=== PATIENT | male | born 1945 | race Caucasian/White ===

== ENCOUNTER 2022-06-27 10:35 | Day surgery (SDC) | payer OTHER ==
[2022-06-27 09:31] VITALS: BMI 24.7
[2022-06-27] MEDS ORDERED: LACTATED RINGERS 1,000 ML IV ONE (11:18)
[2022-06-27 11:39] VITALS: RESP 16; TEMP 97.3
[2022-06-27] MEDS ORDERED: PROPOFOL 10 MG/ML 20 ML VIAL IV ONE (11:46)
--- NOTE | 2022-06-27 12:17 | P.PCN ---
Date of Procedure: 06/27/22 Procedure(s) Performed: BRIEF HISTORY: Patient is a 76-year-old pleasant male scheduled for an elective colonoscopy as a part of evaluation of intermittent lower abdominal pain and chronic diarrhea for the last 1 year duration. PROCEDURE PERFORMED: Colonoscopy with biopsy/snare polypectomy. PREOPERATIVE DIAGNOSIS: Lower abdominal pain and chronic diarrhea of 1 year duration. IV sedation per Anesthesia. PROCEDURE: After informed consent was obtained, the patient, was brought into the endoscopy unit. IV sedation was administered by Anesthesia under continuous monitoring. Digital rectal examination was normal. Initially the Olympus CF-160 flexible video colonoscope was then inserted in the rectum, gradually advanced into the cecum without any difficulty. Careful examination was performed as the scope was gradually being withdrawn. Ileocecal valve and the appendiceal orifice were visualized and appeared normal. Prep was poor in some areas of the colon. Mucosa of the cecum, appeared normal. The ascending colon there was a 1 cm ascending of polyps but by snare polypectomy. The transverse colon there was a 3 cm broad-based polyp removed by snare polypectomy and complete polypectomy was accomplished. Rest of the ascending colon, transverse colon, descending colon, sigmoid colon, appeared normal. In the proximal rectum there was an circumferential ulcerated mass extending from 10-60 cm from the anal verge and multiple biopsies were done from this area. Retroflexion was performed in the rectum and no lesions were seen. The patient tolerated the procedure well. IMPRESSION: 1. Circumferential ulcerated proximal rectal mass extending from 10-60 cm from the anal verge status post multiple biopsies 2, 1 cm and 2 cm ascending colon polyp status post polypectomy 3. 3 cm broad-based transverse colon polyp status post piecemeal snare polypectomy and complete polypectomy accomplished RECOMMENDATIONS: Findings of this examination were discussed with the patient as well as his family. He was advised to follow with the biopsy results. He'll be seen in office in one week..
[2022-06-27] MEDS ORDERED: LACTATED RINGERS 1,000 ML IV SCH (12:19)
[2022-06-27] MEDS ORDERED: LIDOCAINE 1% (10MG/ML) FOR IV START INTRADERMA PRN (12:19)
[2022-06-27 12:37] VITALS: BP 113/71; PULSE 71
== END 2022-06-27 13:06 | disposition home or self-care (01) ==
LOC: ORWHC2ENDO 10:35
PROVIDERS: ATTEND Internal Medicine Gastroenterology
DX: D12.2 Benign neoplasm of ascending colon (principal); D12.3 Benign neoplasm of transverse colon; K63.89 Other specified diseases of intestine
CPT/HCPCS: 45380; 45385; J2704; 88305

== ENCOUNTER → 2022-08-01 | Outpatient (CLI) | payer OTHER ==
--- NOTE | 2022-08-03 15:16 | MR ---
EXAMINATION TYPE: MR Rectal wo con DATE OF EXAM: 08/01/2022 1:45 PM CLINICAL INDICATION:Male, 77 years old with history of C20 RECTAL CANCER; COMPARISON/CORRELATION: None TECHNIQUE: Multiplanar, multisequence imaging was performed on a 3T MR scanner with optimized small f ield of view imaging of the rectum. Orthogonal high resolution T2 weighted imaging was obtained thro ugh the rectal mass with additional sequences including T1 weighted images and diffusion weighted barbara ging. IV CONTRAST: None. FINDINGS: IMAGE QUALITY: sub adequate PRIMARY TUMOR: MORPHOLOGY, LOCATION, AND CHARACTERISTICS: Distance to anal verge: 11.9 cm Distance to top of anal sphincter complex/anorectal junction: 8.0 cm Relationship to the anterior peritoneal reflection: above Craniocaudal length: 5.8 cm Circumferential location (o'clock position): 11 o'clock to 7 o'clock Morphology: Semi-Annular Mucinous: No MRI Rectal Cancer T Category: There is some motion artifact limiting evaluation there is felt to be 8 mm of invasion posteriorly. T3c (tumor penetrates >5-15 mm beyond muscularis propria). FOR LOW RECTAL TUMORS - Invasion of anal sphincter complex Absent EXTRAMURAL VENOUS INVASION (EMVI): No CIRCUMFERENTIAL RESECTION MARGIN (for T3 only) Shortest distance of tumor to MRF (or anticipated CRM): (not applicable if tumor at peritonealized po rtion of the rectum) Is there a separate tumor deposit, lymph node, or EMVI threatening (> 1 mm and < 2 mm) or invading (< 1 mm) the MRF (if yes, note location): LYMPH NODES: Mesorectal/superior rectal lymph nodes and/or tumor deposits: N0 (no visible lymph nodes/deposits *Suspicious morphologic criteria: (1) round shape, (2) irregular borders, (3) heterogenous signal int ensity Superior most suspicious lymph node/deposit is located: None Extramesorectal lymph nodes: any suspicious: No. Locoregional: internal iliac, obturator M1: external iliac, common iliac, inguinal, retroperitoneal OTHER: The prostate gland is enlarged measuring up to 6.7 x 6.3 x 5.3 cm. There is median lobe hypertrophy c hanges. IMPRESSION: Stage: T3 c (note that there peristalsis which limits evaluation) CRM: (not applicable if tumor at peritonealized portion of the rectum Sphincter Involvement: No Suspicious extramesorectal nodes: No
== END | disposition home or self-care (01) ==
LOC: RADMRIMAIN 12:11
PROVIDERS: ATTEND Internal Medicine Hematology & Oncology
DX: C20 Malignant neoplasm of rectum (principal)
CPT/HCPCS: 72195

== ENCOUNTER → 2023-01-12 | Outpatient (CLI) | payer OTHER ==
--- NOTE | 2023-01-16 18:48 | MR ---
EXAMINATION TYPE: MR Rectal wo/w con DATE OF EXAM: 01/12/2023 3:31 PM CLINICAL INDICATION:Male, 77 years old with history of rectal ca; COMPARISON: 08/01/2022 TECHNIQUE: Multiplanar, multisequence imaging was performed on a 3T MR scanner with optimized small f ield of view imaging of the rectum prior to and following the administration of intravenous contrast. Orthogonal high resolution T2 weighted imaging was obtained through the rectal mass with additional sequences including T1 weighted images and diffusion weighted imaging. IV CONTRAST: 8.5Gadavist FINDINGS: TREATED TUMOR/TUMOR BED CHARACTERISTICS: The primary tumor and extramural disease shows decreased tumor size compared to 08/01/2022. Distance of inferior margin of treated tumor/treated area to the anal verge: 10.3 cm Distance of inferior margin of treated tumor/treated area to the anorectal junction: 7.2 cm Relationship to the anterior peritoneal reflection: above Craniocaudal length of the tumor: 5.8 cm Previous craniocaudal length of the tumor: 5.8 cm Maximal width: 0.9 cm Previous width: 1.7 cm yMR-T category: T3c (tumor/fibrosis penetrates>5-15 mm beyond muscularis propria) FUNCTIONAL SEQUENCES DWI - restricted diffusion present in tumor or tumor bed: Yes, series 803 image 96, significantly imp roved from prior imaging 08/01/2022. EXTRAMURAL VENOUS INVASION: None CRM (for T3 only) Shortest distance of tumor to MRF (or anticipated CRM): 16 mm. Is there a separate tumor deposit, lymph node or EMVI threatening ( greater than 1 mm and less than 2 mm) or invading (< 1 mm) the MRF: No LYMPH NODES: Mesorectal/superior rectal lymph nodes and/or tumor deposits: N0 (no visible lymph nodes/deposits or only < 5 mm short axis) Superior most lymph node is located: Extra mesorectal lymph nodes: None OTHER FINDINGS: Trabeculated urinary bladder wall compatible with likely chronic bladder obstruction given enlargement of the prostate gland measuring up to 6.2 cm in transverse dimension. IMPRESSION: Since 08/01/2022, the primary tumor and extramural disease shows: partial response Post treatment category: ymrT T3c, ymrN N0 (no visible lymph nodes/deposits CRM: clear Sphincter involvement: No Suspicious extra mesorectal lymph nodes: No
== END | disposition home or self-care (01) ==
LOC: RADMRIMAIN 13:06
PROVIDERS: ATTEND Radiology Radiation Oncology
DX: C20 Malignant neoplasm of rectum (principal)
CPT/HCPCS: 72197; A9585

== ENCOUNTER → 2023-05-02 | Outpatient (CLI) | payer OTHER ==
[2023-05-02 08:04] LABS: ALT 15 U/L (4-49); AST 19 U/L (17-59); African American GFR (CKD) >90 (>60 ml/min/1.73 sqM); Albumin 3.8 g/dL (3.5-5.0); Albumin/Globulin Ratio 1.3; Alkaline Phosphatase 74 U/L (38-126); Anion Gap 6 mmol/L; Blood Urea Nitrogen 17 mg/dL (9-20); Calcium 10.5 mg/dL (8.4-10.2); Carbon Dioxide 27 mmol/L (22-30); Chloride 105 mmol/L (98-107); Globulin 2.9 g/dL; Glucose 100 mg/dL (74-99); Non-African American GFR(CKD) 89 (>60 ml/min/1.73 sqM); Potassium 4.8 mmol/L (3.5-5.1); Sodium 138 mmol/L (137-145); Total Bilirubin 0.6 mg/dL (0.2-1.3); Total Protein 6.7 g/dL (6.3-8.2)
[2023-05-02 08:10] LABS: NT-Pro-B-Type Natriuretic Pept 412 pg/mL
[2023-05-02 10:57] LABS: HCT 46.2 % (39.6-50.0); HGB 14.9 d/dL (13.0-17.0); MCHC 32.3 d/dL (32.0-37.0); Mean Platelet Volume 11.9 FL (9.5-12.2); NRBC Per 100 WBC 0 X 10*3/uL (0.00-0.01); Platelet Count 183 X 10*3/uL (140-440); RBC 4.97 X 10*6/uL (4.40-5.60); WBC 5.89 X 10*3/uL (4.50-10.00)
[2023-05-02 11:36] LABS: BUN/Creat Ratio 19.88 Ratio (12.00-20.00); Chol/HDL Ratio 3.83 Ratio; LDL Cholesterol,Calculated 126.7 mg/dL (0.0-131.0); VLDL Calculation 18.94 mg/dL (5.00-40.00)
== END | disposition home or self-care (01) ==
LOC: LABWHC1 07:05
PROVIDERS: ATTEND Student in an Organized Health Care Education/Training Program
DX: I50.9 Heart failure, unspecified (principal); E11.9 Type 2 diabetes mellitus without complications; E03.9 Hypothyroidism, unspecified; F17.200 Nicotine dependence, unspecified, uncomplicated
CPT/HCPCS: 36415; 80053; 80061; 83036; 83880; 84443; 85027

== ENCOUNTER 2023-05-07 11:18 | Day surgery (SDC) | payer OTHER ==
[~2023-05-07 11:18] MED LIST: ALPRAZolam 0.25 MG TAB PO PRN; ALPRAZolam 0.5 MG TAB PO PRN; ASPIRIN 325 MG TAB PO STA; ATORVASTATIN 80 MG TAB PO STA; HEPARIN SODIUM,PORCINE (1 ML) 2,500 UNIT in SODIUM CHLORIDE 0.9% 250 ML IRRIGATION PRN; HEPARIN SODIUM,PORCINE 10,000 UNIT in SODIUM CHLORIDE 0.9% 1,000 ML IRRIGATION PRN; NITROGLYCERIN SL TABS 0.4 MG TAB SUBLINGUAL PRN
[2023-05-07] MEDS ORDERED: SODIUM CHLORIDE 0.9% 1,000 ML IV ONE (11:47)
[2023-05-07 12:11] LABS: Basophils % (A) 1 %; Eosinophils # (A) 0.1 k/uL (0-0.7); Eosinophils % (A) 2 %; HCT 43.9 % (39.0-53.0); HGB 14.6 gm/dL (13.0-17.5); Lymphocytes # (A) 1.8 k/uL (1.0-4.8); Lymphocytes % (A) 25 %; MCH 30.9 pg (25.0-35.0); MCHC 33.4 g/dL (31.0-37.0); MCV 92.7 fL (80.0-100.0); Mean Platelet Volume 9.6; Monocytes # (A) 0.4 k/uL (0-1.0); Monocytes % (A) 5 %; Neutrophils # (A) 4.8 k/uL (1.3-7.7); Neutrophils % (A) 65 %; Platelet Count 175 k/uL (150-450); RBC 4.73 m/uL (4.30-5.90); RDW 13.6 % (11.5-15.5); WBC 7.4 k/uL (3.8-10.6)
[2023-05-07] MEDS ORDERED: LIDOCAINE 1% INJ 10MG/ML (20 ML MDV) ONE (13:19)
[2023-05-07] MEDS ORDERED: VERAPAMIL 2.5 MG/ML 2 ML AMP ONE (13:19)
[2023-05-07] MEDS ORDERED: HEPARIN SODIUM 1,000 UN/ML (10ML VL) ONE ×2 (13:30→16:13)
[2023-05-07] MEDS ORDERED: fentaNYL (PF) 50 MCG/ML 2 ML AMP ONE ×2 (13:30→16:33)
[2023-05-07] MEDS: MIDAZOLAM 2 MG/2 ML VIAL IVP ONE ×2 (13:41→13:42)
[2023-05-07] MEDS ORDERED: fentaNYL (PF) 50 MCG/1 ML VIAL IVP ONE (13:41)
[2023-05-07] MEDS ORDERED: LIDOCAINE 1% INJ 10MG/ML (5 ML VIAL-PF) SQ ONE (13:42)
[2023-05-07] MEDS ORDERED: VERAPAMIL 2.5 MG/ML 2 ML AMP INTRAARTER ONE (13:44)
[2023-05-07] MEDS ORDERED: HEPARIN SODIUM 1,000 UN/ML (10ML VL) IV ONE (13:48)
[2023-05-07] MEDS ORDERED: IOPAMIDOL-370 100ML BTL INJ ONE ×2 (13:55→17:26)
[2023-05-07] MEDS ORDERED: IV FLUID CONTINUATION 500 ML IV ONE (14:20)
--- NOTE | 2023-05-07 14:49 | P.CARDCATH ---
Date of Procedure: 05/07/23 Description of Procedure: DIAGNOSTIC CORONARY ANGIOGRAPHY and LEFT HEART CATH REPORT PROCEDURES PERFORMED: Left heart catheterization Selective coronary angiography Moderate conscious sedation 28 mins Right radial access INDICATION: Cardiomyopathy and cardiac arrhythmia 77-year-old saw me in clinic for perioperative cardiac risk assessment. He has history of colon cancer getting chemotherapy with capecitabine since June 2022. I performed an echo cardiac gram which showed a EF of 35-40% which is a new finding for this patient. He also had significant monomorphic PVCs. His PVC but most 20%. As a part of his cardiomyopathy workup be performed in outpat ient heart catheterization CONSENT: I have discussed the risks, benefits and alternative therapies for the above-mentioned procedure, sedation/analgesia and necessary blood product administration (if indicated, as they pertain to this patient). The patient has indicated understanding and acceptance of the risks and procedures discussed. Conscious Sedation: Patient's ECG, heart rate, blood pressure, pulse oximetry was monitored throughout the duration of procedure under my direct supervision. [1] mg Versed and [50] mg Fentanyl were used for induction of moderate conscious sedation. Total duration of moderate concious sedation 28 minutes. PROCEDURE: After explaining the risks, benefits and alternatives of the above mentioned procedures in detail to the patient, informed consent was obtained. Patient was taken to the catheterization lab, prepped and draped in usual sterile fashion using universal precuations. Barbow and magui test were performed to confirm adequate perfusion to fingers. Ultrasound was used to identify the radial artery. 1% lidocaine was infiltrated over the right radial artery. A 6-Stateless sheath was placed and secured in the right radial artery using modified Seldinger technique. The sheath was flushed and 5 mg verapamil was administered intra-arterially. J tipped wire was advanced under fluoroscopic guidance. Once the wire tip reached aortic root 4500 units of IV heparin was given. Over the wire 5-Stateless tiger catheter was advanced. The wire was removed and the catheter was flushed. The catheter failed to selectively engage the left coronary ostium therefore the catheter was removed over the wire. Over the wire JL4 diagnostic catheter was advanced. Wire was removed, catheter was flushed and manipulated under fluoroscopy to selectively engaged the left coronary ostium. Left coronary angioplasty was performed in different angiographic projections. This catheter was exchanged for a JR4 diagnostic catheter over the wire. The catheter was flushed and manipulated to cross the aortic valve. LV pressures were obtained. Pullback was performed across aortic valve and catheter was manipulated to selectively engage the right coronary ostium under fluoroscopic guidance. Right coronary angiography was performed in different angiographic projections. Catheter was removed over the wire. Radial sheath was flushed. The right radial sheath was removed and a TR band was placed with excellent patent hemostasis was achieved. The patient tolerated the procedure well. Jason jackson was transported back to the post catheterization holding area in stable condition. Angiographic images were reviewed in detail. HEMODYNAMICS: Aortic Pressure: 125/70 mmHg. LV pressure: 128/1 mmHg. LVEDP 5 mmHg. SELECTIVE CORONARY ARTERIOGRAPHY: LEFT MAIN: The left main is a large caliber vessel which trifurcates into the LAD, ramus and circumflex. Left main appears angiographically normal. LEFT ANTERIOR DESCENDING CORONARY ARTERY: LAD is a large caliber vessel which terminates before reaching the apex. It appears angiographically normal. It gives rise to multiple diagonal branches which appears angiographically normal. LEFT CIRCUMFLEX CORONARY ARTERY: It is nondominant vessel. Left circumflex is a moderate caliber vessel. Proximal LCx has 10-20% luminal irregularities. It gives rise to OM1 which has mild tender 20% luminal irregularities. OM 2 and OM 3 are medium size vessels which appears angiographically normal. Distal LCx is 2 mm vessel. Between origin of OM 2 and OM 3 has 95% stenosis. RAMUS INTERMEDIUS: Small-caliber vessel appears angiographically normal. RIGHT CORONARY ARTERY: Dominant vessel. The right coronary artery is a large caliber vessel which gives PDA and PL branch. Proximal-mid RCA has eccentric 70% stenosis. Distal-mid has 80% stenosis. 20-30% ostial PDA disease. PL branch appears angiographic normal. IMPRESSION: 95% distal LCx disease 90% distal-mid RCA disease Normal LVEDP Cardiomyopathy with EF 35-40% 20% PVC burden s/p Chemotherapy for Colon CA. Used Capecetabine for chemotherapy, unsure, await Hem-onc clinic notes. PLAN: PCI for RCA and LCx /u within 1 week in clinic. Performing Physician Prudencio Jacobs MD
[2023-05-07] MEDS: fentaNYL (PF) 50 MCG/ML 2 ML AMP IVP ONE ×2 (16:52→16:57)
[2023-05-07] MEDS ORDERED: MIDAZOLAM 2 MG/2 ML VIAL IVP ONE (16:52)
[2023-05-07] MEDS: HEPARIN SODIUM 1,000 UN/ML (10ML VL) IVP ONE ×2 (16:56→17:30)
[2023-05-07] MEDS ORDERED: CLOPIDOGREL 75 MG TAB ONE (17:01)
[2023-05-07] MEDS ORDERED: CLOPIDOGREL 75 MG TAB PO ONE (17:06)
[2023-05-07] MEDS ORDERED: VERAPAMIL SYRINGE (5 MG/10 ML) INTRAARTER ONE (17:26)
[2023-05-07] MEDS ORDERED: MAG HYDROX/AL HYDROX/SIMETH 30 ML CUP PO PRN (17:33)
[2023-05-07] MEDS ORDERED: NITROGLYCERIN SL TABS 0.4 MG TAB SUBLINGUAL PRN (17:33)
[2023-05-07] MEDS ORDERED: ZOLPIDEM 5 MG TAB PO PRN (17:33)
[2023-05-07] MEDS ORDERED: ATROPINE SULFATE 0.1 MG/ML 10ML SYRINGE IV PRN (17:33)
[2023-05-07] MEDS ORDERED: RX INFO: IV CONTRAST WAS GIVEN 1 EACH MISC MISCELLANE PRN (17:33)
--- NOTE | 2023-05-07 17:40 | P.PCN ---
Date of Procedure: 05/07/23 Operative Findings: PERCUTANEOUS CORONARY INTERVENTION Performing physician Jerel Mcgrath M.D. Procedure Performed: 1. Successful stenting of the mid RCA using 4.0 x 38 Xience drug-eluting stent with an excellent angiographic results. 2. Adjunctive use of intravascular imaging Indication: Critical mid RCA disease in this 77-year-old gentleman who underwent a heart catheterization by Dr. Jacobs and was found to have critical disease involving the RCA and left circumflex Approach: Right radial artery Complications: None Level of Sedation: Moderate with a sedation length of 33 minutes Procedure Discussion: After obtaining an informed consent the patient was brought to the cardiac cardiac cath lab radiology technologist. The right radial sheath was in place. Anticoagulation was initiated using heparin with continuous ACT monitoring. Subsequently I did engage the RCA using JR4 guiding catheter. I did wire the RCA using a run-through wire. Intravascular ultrasound was performed and showed calcified RCA with a diameter around 4 mm to 4.5 mm. Predilatation was performed using 3.5 mm noncompliant balloon before I deployed a 4.0 x 38 mm stent where the stent was positioned under fluoroscopy guidance and deployed under fluoroscopy guidance. Intra vascular ultrasound was performed again and showed that the proximal portion of the stent was not well expanded. I postdilated using 4.5 mm noncompliant balloon. Final angiogram showed excellent angiographic results and the procedure was completed was no complication Postprocedure Management: 1. Dual antiplatelet therapy using aspirin and Plavix for at least 6 months 2. PCI of the LCx to be performed in the next few weeks
[2023-05-07] MEDS ORDERED: SODIUM CHLORIDE 0.9% 1,000 ML in EMPTY BAG 1 BAG IV SCH (17:45)
[2023-05-07] MEDS: SODIUM CHLORIDE 0.9% 1,000 ML in EMPTY BAG 1 BAG IV SCH ×2 (18:06→18:33)
[2023-05-08] MEDS: SODIUM CHLORIDE 0.9% 1,000 ML in EMPTY BAG 1 BAG IV SCH (06:35)
[2023-05-08 07:28] LABS: African American GFR (CKD) >90 (>60 ml/min/1.73 sqM); Non-African American GFR(CKD) >90 (>60 ml/min/1.73 sqM)
[2023-05-08] MEDS ORDERED: TAMSULOSIN 0.4 MG CAP.ER.24H PO SCH (07:30)
[2023-05-08] MEDS ORDERED: amLODIPine 5 MG TAB PO SCH (07:30)
[2023-05-08 07:45] VITALS: BP 148/54; PULSE 63; RESP 14; TEMP 97.6
[2023-05-08] MEDS ORDERED: ASPIRIN 81 MG PO SCH (09:00)
[2023-05-08] MEDS ORDERED: METOPROLOL SUCCINATE (ER) 50 MG TAB.ER.24H PO SCH (09:00)
[2023-05-08] MEDS ORDERED: DULoxetine HCL 30 MG CAPSULE.DR PO SCH (09:00)
[2023-05-08] MEDS ORDERED: LOSARTAN 25 MG TAB PO SCH (09:00)
[2023-05-08] MEDS ORDERED: CLOPIDOGREL 75 MG TAB PO SCH (09:00)
== END 2023-05-08 10:20 | disposition home or self-care (01) ==
LOC: CATHCVL 11:18 → 6NMEDSUR 17:48 → CATHCVL 05-08 10:20
PROVIDERS: ATTEND Student in an Organized Health Care Education/Training Program
DX: I25.10 Atherosclerotic heart disease of native coronary artery without angina pectoris (principal); I42.0 Dilated cardiomyopathy; I11.0 Hypertensive heart disease with heart failure; I50.9 Heart failure, unspecified; I45.10 Unspecified right bundle-branch block; I49.3 Ventricular premature depolarization; F17.210 Nicotine dependence, cigarettes, uncomplicated; Z85.038 Personal history of other malignant neoplasm of large intestine; Z79.899 Other long term (current) drug therapy
CPT/HCPCS: 92978; 93458; 76937; 82565; 85025; C9600; C1887 ×2; C1769 ×3; C1894; C1753; C1874; C1725 ×2; J2250; J2001; J3010 ×2; J1644; Q9967

== ENCOUNTER 2023-06-05 08:08 | Day surgery (SDC) | payer OTHER ==
[2023-05-31 11:31] VITALS: BMI 25.4
[~2023-06-05 08:08] MED LIST changes: -ATORVASTATIN 80 MG TAB PO STA; -HEPARIN SODIUM,PORCINE (1 ML) 2,500 UNIT in SODIUM CHLORIDE 0.9% 250 ML IRRIGATION PRN; -HEPARIN SODIUM,PORCINE 10,000 UNIT in SODIUM CHLORIDE 0.9% 1,000 ML IRRIGATION PRN; +SODIUM CHLORIDE 0.9% 1,000 ML in EMPTY BAG 1 BAG IV SCH
[2023-06-05 08:59] LABS: Basophils % (A) 0 %; Eosinophils # (A) 0.2 k/uL (0-0.7); Eosinophils % (A) 2 %; HCT 42.7 % (39.0-53.0); HGB 13.9 gm/dL (13.0-17.5); Lymphocytes # (A) 2.2 k/uL (1.0-4.8); Lymphocytes % (A) 27 %; MCH 30.6 pg (25.0-35.0); MCHC 32.6 g/dL (31.0-37.0); MCV 93.7 fL (80.0-100.0); Mean Platelet Volume 9.9; Monocytes # (A) 0.5 k/uL (0-1.0); Monocytes % (A) 7 %; Neutrophils # (A) 4.9 k/uL (1.3-7.7); Neutrophils % (A) 61 %; Platelet Count 159 k/uL (150-450); RBC 4.56 m/uL (4.30-5.90); RDW 13.7 % (11.5-15.5)
[2023-06-05 09:03] VITALS: RESP 18; TEMP 97.6
[2023-06-05 09:06] LABS: African American GFR (CKD) >90 (>60 ml/min/1.73 sqM); Anion Gap 9 mmol/L; Blood Urea Nitrogen 13 mg/dL (9-20); Calcium 10.1 mg/dL (8.4-10.2); Carbon Dioxide 25 mmol/L (22-30); Chloride 104 mmol/L (98-107); Glucose 96 mg/dL (74-99); Non-African American GFR(CKD) >90 (>60 ml/min/1.73 sqM); Potassium 4.1 mmol/L (3.5-5.1); Sodium 138 mmol/L (137-145)
[2023-06-05] MEDS ORDERED: VERAPAMIL 2.5 MG/ML 2 ML AMP ONE (11:02)
[2023-06-05] MEDS ORDERED: MIDAZOLAM 2 MG/2 ML VIAL IVP ONE (11:10)
[2023-06-05] MEDS ORDERED: LIDOCAINE 1% INJ 10MG/ML (5 ML VIAL-PF) SQ ONE (11:11)
[2023-06-05] MEDS ORDERED: VERAPAMIL SYRINGE (5 MG/10 ML) INTRAARTER ONE (11:12)
[2023-06-05] MEDS ORDERED: HEPARIN SODIUM 1,000 UN/ML (10ML VL) IVP ONE (11:14)
[2023-06-05] MEDS ORDERED: NITROGLYCERIN 1000MCG/10ML SYRINGE INTRACORON ONE (11:24)
[2023-06-05] MEDS ORDERED: ATROPINE SULFATE 0.1 MG/ML 10ML SYRINGE IV PRN (11:32)
[2023-06-05] MEDS ORDERED: RX INFO: IV CONTRAST WAS GIVEN 1 EACH MISC MISCELLANE PRN (11:32)
[2023-06-05] MEDS ORDERED: NITROGLYCERIN SL TABS 0.4 MG TAB SUBLINGUAL PRN (11:32)
[2023-06-05] MEDS ORDERED: MAG HYDROX/AL HYDROX/SIMETH 30 ML CUP PO PRN (11:32)
[2023-06-05] MEDS ORDERED: ZOLPIDEM 5 MG TAB PO PRN (11:32)
[2023-06-05] MEDS ORDERED: CLOPIDOGREL 75 MG TAB ONE (11:34)
[2023-06-05] MEDS ORDERED: CLOPIDOGREL 75 MG TAB PO ONE (11:36)
[2023-06-05] MEDS ORDERED: IOPAMIDOL-370 100ML BTL INJ ONE (11:36)
--- NOTE | 2023-06-05 11:36 | P.PCN ---
Date of Procedure: 06/05/23 Operative Findings: PERCUTANEOUS CORONARY INTERVENTION Performing physician Jerel Mcgrath M.D. Procedure Performed: 1. Successful stenting of the distal left circumflex and using 2.75 x 15 mm Xience drug-eluting stent with an excellent angiographic results. 2. Ultrasound-guided access of the right radial art Indication: Severe/critical disease involving the left circumflex distally in this patient who continues to be symptomatic Approach: Right radial artery Complications: None Level of Sedation: Moderate with a sedation length of 16 minutes Procedure Discussion: After obtaining an informed consent the patient was brought to the cardiac chemical laboratory technician. The right radial artery was cannulated using micropuncture technique under ultrasound guidance a micropuncture wire passed easily then I placed a 6-Faroese 11 cm sheath. After that I give the patient 2 mg of verapamil intra-arterial and 5000 use of heparin intravenous. After that I did engage the left main using CLS 3 guiding catheter. I did wire the left circumflex using a run- through wire. After that I did balloon angioplasty using 2.5 mm balloon before I deployed 2.75 x 15 mm stent where the stent was positioned under fluoroscopy guidance and deployed under 12 torres for 10 seconds. Final angiogram showed good angiographic results and the procedure was completed was no complication Postprocedure Management: 1. Dual antiplatelet therapy using aspirin and Plavix for at least 6 months 2. Aggressive cholesterol control 3. Risk factors modification
[2023-06-05] MEDS ORDERED: SODIUM CHLORIDE 0.9% 1,000 ML in EMPTY BAG 1 BAG IV SCH (11:45)
[2023-06-05] MEDS ORDERED: hydrALAZINE HCL 20 MG/ML 1 ML VIAL IVP STA (13:22)
[2023-06-05 16:35] VITALS: BP 143/76; PULSE 54
[2023-06-06] MEDS ORDERED: TAMSULOSIN 0.4 MG CAP.ER.24H PO SCH (07:30)
[2023-06-06] MEDS ORDERED: DULoxetine HCL 30 MG CAPSULE.DR PO SCH (09:00)
[2023-06-06] MEDS ORDERED: LOSARTAN 25 MG TAB PO SCH (09:00)
[2023-06-06] MEDS ORDERED: ASPIRIN 81 MG PO SCH (09:00)
[2023-06-06] MEDS ORDERED: CLOPIDOGREL 75 MG TAB PO SCH ×2 (09:00)
[2023-06-06] MEDS ORDERED: METOPROLOL SUCCINATE (ER) 50 MG TAB.ER.24H PO SCH (09:00)
== END 2023-06-05 16:33 | disposition home or self-care (01) ==
LOC: CATHCVL 08:08
PROVIDERS: ATTEND Internal Medicine Interventional Cardiology
DX: I25.10 Atherosclerotic heart disease of native coronary artery without angina pectoris (principal); Z95.5 Presence of coronary angioplasty implant and graft; I10 Essential (primary) hypertension; F17.210 Nicotine dependence, cigarettes, uncomplicated; Z79.899 Other long term (current) drug therapy; I42.9 Cardiomyopathy, unspecified
CPT/HCPCS: 76937; 80048; 85025; C9600; C1887; C1769 ×2; C1894; C1725; C1874; J2250; J2001; J1644; Q9967; J2305

== ENCOUNTER → 2023-11-13 | Outpatient (CLI) | payer OTHER ==
--- NOTE | 2023-11-14 11:29 | MR ---
EXAMINATION TYPE: MR Rectal wo/w con DATE OF EXAM: 11/13/2023 1:42 PM CLINICAL INDICATION:Male, 78 years old with history of C20 rectal ca; PHH, Rectal Ca COMPARISON: 08/01/2022, 01/12/2023 TECHNIQUE: Multiplanar, multisequence imaging was performed on a 3T MR scanner with optimized small f ield of view imaging of the rectum. Orthogonal high resolution T2 weighted imaging was obtained thro ugh the rectal mass with additional sequences including T1 weighted images and diffusion weighted barbara ging. IV CONTRAST: 8.5GadavistNone. FINDINGS: TREATED TUMOR/TUMOR BED CHARACTERISTICS: The primary tumor and extramural disease shows decreased tumor size compared to 01/12/2023r 08/01/2022. Distance of inferior margin of treated tumor/treated area to the anal verge: 11.1 cm Distance of inferior margin of treated tumor/treated area to the anorectal junction: 7.8 cm Relationship to the anterior peritoneal reflection: above Craniocaudal length of the tumor: 5.7 cm Previous craniocaudal length of the tumor: 5.8 cm Maximal width: 0.9 cm Previous width: 0.8 cm yMR-T category: T3c (tumor/fibrosis penetrates>5-15 mm beyond muscularis propria)a FUNCTIONAL SEQUENCES DWI - restricted diffusion present in tumor or tumor bed: Decreased from prior, EXTRAMURAL VENOUS INVASION: None CRM (for T3 only) Shortest distance of tumor to MRF (or anticipated CRM): 14 mm. Is there a separate tumor deposit, lymph node or EMVI threatening ( greater than 1 mm and less than 2 mm) or invading (< 1 mm) the MRF: No LYMPH NODES: Mesorectal/superior rectal lymph nodes and/or tumor deposits: N0 (no visible lymph nodes/deposits or only < 5 mm short axis) Superior most lymph node is located: Extra mesorectal lymph nodes: None OTHER FINDINGS: Trabeculated urinary bladder wall compatible with likely chronic bladder obstruction given enlargement of the prostate gland measuring up to 6.2 cm in transverse dimension. IMPRESSION: Since 01/12/2023, the primary tumor and extramural disease shows: partial response Post treatment category: ymrT T3c, ymrN N0 (no visible lymph nodes/deposits CRM: clear Sphincter involvement: No Suspicious extra mesorectal lymph nodes: No
== END | disposition home or self-care (01) ==
LOC: RADMRIMAIN 10:15
PROVIDERS: ATTEND Radiology Radiation Oncology
DX: C20 Malignant neoplasm of rectum (principal)
CPT/HCPCS: 72197